=== PATIENT | female | born 2000 | race Caucasian/White ===

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

== ENCOUNTER → 2023-05-30 | Outpatient (REF) | payer OTHER, MEDICAID ==
[~2023-05-30] MED LIST: SERT50TA29 PO
[2023-05-30 21:26] LABS: GC DNA AMPLIFICATION NEGATIVE (NEGATIVE)
== END ==
LOC: M LAB REF 17:41
PROVIDERS: ATTEND Registered Nurse
DX: Z11.3 Encounter for screening for infections with a predominantly sexual mode of transmission (principal)

== ENCOUNTER 2023-06-07 12:18 | Day surgery (SDC) | payer OTHER, MEDICAID ==
[~2023-06-07] VITALS: Ht 160 cm; Wt 64.2 kg
[2023-06-07] MEDS ORDERED: MIDAZOLAM INJ 2MG/2ML VIAL As Ordered ONE (12:38)
[2023-06-07] MEDS ORDERED: fentaNYL 100 MCG/2 ML INJECTION As Ordered ONE ×2 (12:38→15:35)
[2023-06-07 12:46] LABS: HEMATOCRIT 41.1 % (36.0-47.0); HEMOGLOBIN 14.1 g/dl (12.0-15.5); MEAN CORPUSCULAR HEMOGLOBIN 31.7 pg (27.0-33.0); MEAN CORPUSCULAR HGB CONC 34.3 g/dl (32.0-36.5); MEAN CORPUSCULAR VOLUME 92.4 fl (80.0-96.0); PLATELET COUNT, AUTOMATED 255 10^3/uL (150-450); RED BLOOD COUNT 4.45 10^6/uL (4.00-5.40)
[2023-06-07] MEDS ORDERED: LIDOCAINE 2% 100MG/5ML SDV (FOR ANES.) As Ordered ONE (15:31)
[2023-06-07] MEDS ORDERED: propofoL 200 MG/20 ML VIAL As Ordered ONE (15:31)
[2023-06-07] MEDS ORDERED: ROCURONIUM BROMIDE 50MG/5ML VIAL As Ordered ONE (15:32)
[2023-06-07] MEDS ORDERED: METOCLOPRAMIDE INJ 10MG/2ML VIAL As Ordered ONE (15:36)
[2023-06-07] MEDS ORDERED: KETOROLAC 60MG 2ML VIAL As Ordered ONE (15:36)
[2023-06-07] MEDS ORDERED: ONDANSETRON 4MG 2ML VIAL As Ordered ONE (15:36)
[2023-06-07] MEDS ORDERED: SUGAMMADEX SODIUM 500 MG/5 ML VIAL (BRIDION) As Ordered ONE (15:38)
[2023-06-07] MEDS ORDERED: ACETAMINOPHEN 1000MG 100ML IV BAG As Ordered ONE (15:39)
[2023-06-07] MEDS ORDERED: DESFLURANE 240 ML INHALANT As Ordered ONE (15:43)
[2023-06-07] MEDS ORDERED: fentaNYL 100 MCG/2 ML INJECTION IV PRN (16:30)
[2023-06-07] MEDS ORDERED: LR 1,000 ML IV SCH (16:30)
[2023-06-07] MEDS ORDERED: ONDANSETRON 4MG 2ML VIAL IV PRN (16:30)
[2023-06-07] MEDS ORDERED: OXYC1TAB23 PO (16:31)
[2023-06-07] MEDS ORDERED: IBUP-1022 PO (16:32)
[2023-06-07] MEDS: oxyCODONE 5MG TAB PO PRN ×2 (16:44→17:14)
[2023-06-07 17:50] VITALS: BP 120/64; TEMP 97.8; O2SAT 98
== END 2023-06-07 18:02 | disposition home or self-care (01) ==
LOC: M SDC 12:18
PROVIDERS: ATTEND Specialist
DX: N83.201 Unspecified ovarian cyst, right side (principal); N83.02 Follicular cyst of left ovary; F32.A Depression, unspecified; Z79.899 Other long term (current) drug therapy
CPT/HCPCS: 36415; 58662; 81025; 85027; 88305; J0131; J0665; J1100; J1885; J2250; J2405; J2765; J3010

== ENCOUNTER → 2023-07-27 | Outpatient (REF) | payer OTHER, MEDICAID ==
[~2023-07-27] MED LIST changes: +IBUP-1022 PO; +OXYC1TAB23 PO
== END ==
LOC: M SFHCWAGY 17:48
PROVIDERS: ATTEND Specialist
DX: Z12.4 Encounter for screening for malignant neoplasm of cervix (principal)
CPT/HCPCS: 87624; G0123

== ENCOUNTER 2023-10-25 10:03 | Emergency (ER) | payer OTHER, MEDICAID ==
[~2023-10-25] VITALS: Ht 160 cm; Wt 71.7 kg
[2023-10-25 12:03] VITALS: BP 111/69; TEMP 98.4; O2SAT 100
== END 2023-10-25 12:07 | disposition home or self-care (01) ==
LOC: M ED 10:03
DX: N64.59 Other signs and symptoms in breast (principal); Z79.52 Long term (current) use of systemic steroids

== ENCOUNTER → 2023-12-26 | Outpatient (REF) | payer OTHER, MEDICAID | LOC: M PLALAB 10:07 | PROVIDERS: ATTEND Advanced Practice Midwife | DX: Z53.9 Procedure and treatment not carried out, unspecified reason (principal) ==

== ENCOUNTER → 2023-12-26 | Outpatient (CLI) | payer OTHER, MEDICAID ==
[2023-12-26 16:00] LABS: HEMATOCRIT 38.7 % (36.0-47.0); MEAN CORPUSCULAR HEMOGLOBIN 31.4 pg (27.0-33.0); MEAN CORPUSCULAR HGB CONC 33.6 g/dl (32.0-36.5); MEAN CORPUSCULAR VOLUME 93.5 fl (80.0-96.0); PLATELET COUNT, AUTOMATED 243 10^3/uL (150-450); RED BLOOD COUNT 4.14 10^6/uL (4.00-5.40); WHITE BLOOD COUNT 8.9 10^3/uL (4.0-10.0)
[2023-12-26 16:47] LABS: HIV 1&2 SCREEN NEGATIVE (NEGATIVE)
[2023-12-26 16:55] LABS: HEPATITIS C VIRUS ABY INDEX < 0.02 INDEX (<0.8)
[2023-12-26 17:16] LABS: CHLAMYDIA DNA AMPLIFICATION NEGATIVE (NEGATIVE); GC DNA AMPLIFICATION NEGATIVE (NEGATIVE)
== END ==
LOC: M PLALAB 10:24
PROVIDERS: ATTEND Advanced Practice Midwife
DX: Z34.91 Encounter for supervision of normal pregnancy, unspecified, first trimester (principal)

== ENCOUNTER → 2024-02-21 | Outpatient (CLI) | payer MEDICAID, OTHER | LOC: M WHC 08:49 | PROVIDERS: ATTEND Specialist | DX: O32.2XX0 Maternal care for transverse and oblique lie, not applicable or unspecified (principal); Z3A.19 19 weeks gestation of pregnancy ==

== ENCOUNTER → 2024-04-02 | Outpatient (CLI) | payer OTHER | LOC: M RAD 14:17 | PROVIDERS: ATTEND Advanced Practice Midwife | DX: Z34.82 Encounter for supervision of other normal pregnancy, second trimester (principal) ==

== ENCOUNTER → 2024-04-23 | Outpatient (CLI) | payer OTHER ==
[2024-04-23 11:26] LABS: HEMATOCRIT 35.6 % (36.0-47.0); HEMOGLOBIN 12.2 g/dl (12.0-15.5); MEAN CORPUSCULAR HGB CONC 34.3 g/dl (32.0-36.5); MEAN CORPUSCULAR VOLUME 96.2 fl (80.0-96.0); PLATELET COUNT, AUTOMATED 214 10^3/uL (150-450); WHITE BLOOD COUNT 9.3 10^3/uL (4.0-10.0)
== END ==
LOC: M PLALAB 07:54
PROVIDERS: ATTEND Advanced Practice Midwife
DX: Z34.92 Encounter for supervision of normal pregnancy, unspecified, second trimester (principal)

== ENCOUNTER → 2024-05-20 | Outpatient (CLI) | payer OTHER | LOC: M WHC 09:22 | PROVIDERS: ATTEND Advanced Practice Midwife | DX: Z34.82 Encounter for supervision of other normal pregnancy, second trimester (principal) ==

== ENCOUNTER 2024-07-11 21:06 | Inpatient (IN) | payer OTHER, MEDICAID ==
[~2024-07-11] VITALS: Ht 160 cm; Wt 77.2 kg
[2024-07-11 21:33] VITALS: BP 129/81
[2024-07-11] MEDS: OXYTOCIN DRIP 30 UNITS in IV 1 EA IV SCH (23:06)
[2024-07-11] MEDS: PENICILLIN G POTASSIUM 5 MU IV 5 MU in D5W MINI-BAG PLUS 100 ML IV STA (23:06)
[2024-07-11 23:15] VITALS: BP 133/86
[2024-07-11 23:34] LABS: BASO % 0.2 % (0.0-1.0); EOS # 0.2 10^3/uL (0.0-0.5); EOS % 1.4 % (0.0-3.0); HEMATOCRIT 33.1 % (36.0-47.0); HEMOGLOBIN 11.4 g/dl (12.0-15.5); LYMPH # 2.2 10^3/uL (1.5-5.0); LYMPH % 17.9 % (24.0-44.0); MEAN CORPUSCULAR HEMOGLOBIN 31.8 pg (27.0-33.0); MEAN CORPUSCULAR HGB CONC 34.4 g/dl (32.0-36.5); MEAN CORPUSCULAR VOLUME 92.5 fl (80.0-96.0); MONO # 0.8 10^3/uL (0.0-0.8); MONO % 6.3 % (2.0-8.0); NEUTROPHILS # 9.2 10^3/uL (1.5-8.5); NEUTROPHILS % 73.5 % (36.0-66.0); PLATELET COUNT, AUTOMATED 219 10^3/uL (150-450); RED BLOOD COUNT 3.58 10^6/uL (4.00-5.40); WHITE BLOOD COUNT 12.5 10^3/uL (4.0-10.0)
[2024-07-12] VITALS (50 sets, daily range): BP systolic 101–141; BP diastolic 55–82; O2SAT 98
[2024-07-12 00:40] LABS: HEPATITIS C VIRUS ABY INDEX < 0.02 INDEX (<0.8)
[2024-07-12] MEDS: PEN G POT 3,000,000 UNIT/50 ML 3,000,000 UNIT in IV 1 EA IV SCH (03:16)
[2024-07-12] MEDS: LR 1,000 ML IV SCH (07:57)
[2024-07-12] MEDS ORDERED: CARBOPROST TROMETHAMINE 250 MCG/ML AMP IM PRN (08:25)
[2024-07-12] MEDS ORDERED: TRANEXAMIC ACID INJection 1,000 MG in NS 100 ML IV PRN (08:25)
[2024-07-12] MEDS ORDERED: LIDOCAINE 1% MDV 20ML VIAL INFIL PRN (08:25)
[2024-07-12] MEDS ORDERED: METHYLERGONOVINE MALEATE 0.2MG/ML 1ML VIAL IM PRN (08:25)
[2024-07-12] MEDS ORDERED: OXYTOCIN INJ 10UNITS/ML 1ML VIAL IM PRN (08:25)
[2024-07-12] MEDS ORDERED: OXYTOCIN DRIP 30 UNITS in IV 1 EA IV PRN (08:25)
[2024-07-12] MEDS: miSOPROStol 50MCG 1/2 TABLET PO SCH (08:50)
[2024-07-12] MEDS: LACTATED RINGER'S 1000 ML IV STA (15:48)
[2024-07-12] MEDS ORDERED: diphenhydrAMINE 50MG/ML VIAL IV PRN (16:10)
[2024-07-12] MEDS ORDERED: NALOXONE INJ 0.4MG/1ML VIAL IV PRN (16:10)
[2024-07-12] MEDS ORDERED: LR 500 ML IV PRN (16:10)
[2024-07-12] MEDS ORDERED: ONDANSETRON 4MG 2ML VIAL IV PRN (16:10)
[2024-07-12] MEDS ORDERED: EPIDURAL/PCA KEYS XX PRN (16:10)
[2024-07-12] MEDS ORDERED: ePHEDrine SULFATE 25 MG/5 ML(5MG/ML) SYRINGE IVP PRN (16:10)
[2024-07-12] MEDS: FENTANYL/ROPIVACAINE/NACL BAG 100 ML EPIDURAL SCH (17:09)
[2024-07-12] MEDS: OXYTOCIN DRIP 30 UNITS in IV 1 EA IV SCH (17:51)
[2024-07-12] MEDS ORDERED: DIBUCAINE 1% OINTMENT 30GM TOP PRN (21:55)
[2024-07-12] MEDS ORDERED: ACETAMINOPHEN TAB 650MG DOSE (2X325MG) PO PRN (21:55)
[2024-07-12] MEDS ORDERED: RHO(D) IMMUNE GLOBULIN/MALTOSE 500MCG(2500IU)/2.2ML VIAL (WINRHO) IM SCH (21:55)
[2024-07-12] MEDS ORDERED: IBUPROFEN 600MG TAB PO PRN (21:55)
[2024-07-12] MEDS ORDERED: MOM 30ML SUSPENSION UDC PO PRN (21:55)
[2024-07-12] MEDS ORDERED: DOCUSATE SODIUM 100MG CAPSULE PO PRN (21:55)
[2024-07-13 06:00] VITALS: BP 121/69; O2SAT 97
[2024-07-13] MEDS: IBUPROFEN 800 MG TAB PO PRN (06:11)
[2024-07-13] MEDS: PRENATAL VITAMINS CHEWABLE TABLET PO SCH (09:19)
[2024-07-13] MEDS: ACETAMINOPHEN 500 MG TAB PO PRN (11:44)
[2024-07-13 16:00] VITALS: BP 129/87; O2SAT 99
[2024-07-14 05:45] VITALS: BP 135/72; O2SAT 96
[2024-07-14] MEDS: MEASLES,MUMPS,RUBELLA VACCINE INJ (MMR-II) SC.IMMUN ONE (07:27)
[2024-07-14] MEDS ORDERED: IBUP80TA PO (09:43)
[2024-07-14] MEDS ORDERED: ACET-683 PO (09:43)
== END 2024-07-14 11:45 | disposition home or self-care (01) | DRG 807 ==
LOC: M LDI 21:06 → M OBS 07-12 23:09
PROVIDERS: ADMIT Obstetrics & Gynecology; ATTEND Advanced Practice Midwife
PROC: 3E033VJ Introduction of Other Hormone into Peripheral Vein, Percutaneous Approach (ICD-10-PCS; 2024-07-11)
PROC: 10E0XZZ Delivery of Products of Conception, External Approach (ICD-10-PCS; principal; 2024-07-12)
PROC: 0HQ9XZZ Repair Perineum Skin, External Approach (ICD-10-PCS; 2024-07-12)
DX: O99.824 Streptococcus B carrier state complicating childbirth (principal); Z37.0 Single live birth; Z3A.39 39 weeks gestation of pregnancy; O70.0 First degree perineal laceration during delivery; O69.81X0 Labor and delivery complicated by cord around neck, without compression, not applicable or unspecified

== ENCOUNTER → 2024-10-01 | Outpatient (CLI) | payer MEDICAID, OTHER ==
[~2024-10-01] MED LIST changes: +ACET-683 PO; +IBUP80TA PO
[2024-10-01 14:44] LABS: HEMOGLOBIN A1c 5.2 % (4.0-6.0)
[2024-10-01 14:46] LABS: ALKALINE PHOSPHATASE 126 U/L (35-104); ALT/SGPT 68 U/L (7.0-40); AST/SGOT 29 U/L (<34); BILIRUBIN,TOTAL 0.4 MG/DL (0.3-1.2); BLOOD UREA NITROGEN 12 MG/DL (9-23); CALCIUM LEVEL 9.7 MG/DL (8.5-10.1); CARBON DIOXIDE LEVEL 30 MMOL/L (20-31); CHLORIDE LEVEL 104 MMOL/L (98-107); CHOLESTEROL LEVEL 203 MG/DL (<200); CHOLESTEROL RISK RATIO 4.01 (<5); CREATININE FOR GFR 0.54 MG/DL (0.55-1.30); FREE T4 0.99 NG/DL (0.89-1.76); GLOMERULAR FILTRATION RATE > 60.0 (>60); GLUCOSE, FASTING 82 MG/DL (60-100); HDL CHOLESTEROL 50.6 MG/DL (>40); LDL CHOLESTEROL 124.4 MG/DL (<100); NON-HDL-C 152.4 MG/DL; POTASSIUM SERUM 4.4 MMOL/L (3.5-5.1); SODIUM LEVEL 140 MMOL/L (136-145); THYROGLOBULIN ANTIBODY < 15.0 U/ML (<60.0); TOTAL PROTEIN 7.9 G/DL (5.7-8.2); TRIGLYCERIDES LEVEL 140 MG/DL (<150)
[2024-10-01 14:47] LABS: PROLACTIN 15.69 NG/ML
[2024-10-02 13:17] LABS: INSULIN TOTAL2 6.9 uIU/mL (<=18.4)
== END ==
LOC: M PLALAB 09:42
PROVIDERS: ATTEND Registered Nurse
DX: R63.5 Abnormal weight gain (principal)

== ENCOUNTER → 2024-10-23 | Outpatient (CLI) | payer MEDICAID, OTHER ==
[2024-10-23 13:06] LABS: INR 0.97; PROTHROMBIN TIME 13.2 SECONDS (12.5-14.5)
[2024-10-23 13:59] LABS: ALKALINE PHOSPHATASE 108 U/L (35-104); ALT/SGPT 73 U/L (7.0-40); AST/SGOT 33 U/L (<34); BILIRUBIN,TOTAL 0.3 MG/DL (0.3-1.2); BLOOD UREA NITROGEN 15 MG/DL (9-23); CALCIUM LEVEL 10.3 MG/DL (8.5-10.1); CARBON DIOXIDE LEVEL 28 MMOL/L (20-31); CHLORIDE LEVEL 104 MMOL/L (98-107); CREATININE FOR GFR 0.54 MG/DL (0.55-1.30); GLOMERULAR FILTRATION RATE > 60.0 (>60); GLUCOSE, FASTING 77 MG/DL (60-100); IRON (FE) 82 UG/DL (50-170); PERCENT SATURATION 25.5 % (13.2-45.0); POTASSIUM SERUM 4.5 MMOL/L (3.5-5.1); SODIUM LEVEL 140 MMOL/L (136-145); TOTAL IRON BINDING CAPACITY 322 UG/DL (250-425)
[2024-10-23 14:02] LABS: FERRITIN 18.9 NG/ML (7.3-270.7)
[2024-10-23 14:19] LABS: HEPATITIS B SURFACE ANTIGEN NEGATIVE (NEGATIVE)
[2024-10-23 14:40] LABS: HEPATITIS B CORE ANTIBODY IGM NEGATIVE (NEGATIVE); HEPATITIS C VIRUS ABY INDEX < 0.02 INDEX (<0.8)
== END ==
LOC: M PLALAB 09:56
PROVIDERS: ATTEND Registered Nurse
DX: R94.5 Abnormal results of liver function studies (principal)

== ENCOUNTER → 2024-12-13 | Outpatient (CLI) | payer OTHER | LOC: M RAD 07:52 | PROVIDERS: ATTEND Registered Nurse | DX: R94.5 Abnormal results of liver function studies (principal); K76.0 Fatty (change of) liver, not elsewhere classified ==

== ENCOUNTER → 2025-01-21 | Outpatient (CLI) | payer OTHER ==
[2025-01-21 14:23] LABS: HEMATOCRIT 39.1 % (36.0-47.0); HEMOGLOBIN 13.5 g/dl (12.0-15.5); MEAN CORPUSCULAR HGB CONC 34.5 g/dl (32.0-36.5); MEAN CORPUSCULAR VOLUME 89.7 fl (80.0-96.0); PLATELET COUNT, AUTOMATED 261 10^3/uL (150-450); RED BLOOD COUNT 4.36 10^6/uL (4.00-5.40)
[2025-01-21 15:09] LABS: HIV 1&2 SCREEN NEGATIVE (NEGATIVE)
[2025-01-21 15:18] LABS: HEPATITIS C VIRUS ABY INDEX 0.06 INDEX (<0.8)
[2025-01-21 18:08] LABS: GC DNA AMPLIFICATION NEGATIVE (NEGATIVE)
[2025-01-24 12:30] LABS: Trichomonas vaginalis (AMP) NOT DETECTED (NEGATIVE)
== END ==
LOC: M PLALAB 09:36
PROVIDERS: ATTEND Advanced Practice Midwife
DX: Z34.81 Encounter for supervision of other normal pregnancy, first trimester (principal)

== ENCOUNTER → 2025-03-14 | Outpatient (CLI) | payer OTHER | LOC: M RAD 10:36 | PROVIDERS: ATTEND Nurse Practitioner Family | DX: Z34.80 Encounter for supervision of other normal pregnancy, unspecified trimester (principal) ==

== ENCOUNTER → 2025-05-27 | Outpatient (CLI) | payer OTHER ==
[2025-05-27 11:54] LABS: PLATELET COUNT, AUTOMATED 235 10^3/uL (150-450)
[2025-05-27 12:16] LABS: GLUCOSE CHALLENGE TEST 1 HOUR 107 MG/DL (LESS THAN 140)
[2025-05-27 12:48] LABS: Trichomonas vaginalis (AMP) NOT DETECTED (NEGATIVE)
[2025-05-27 12:51] LABS: HIV 1&2 SCREEN NEGATIVE (NEGATIVE)
[2025-05-27 12:59] LABS: HEPATITIS C VIRUS ABY INDEX < 0.02 INDEX (<0.8)
[2025-05-27 13:12] LABS: GC DNA AMPLIFICATION NEGATIVE (NEGATIVE)
== END ==
LOC: M PLALAB 07:51
PROVIDERS: ATTEND Nurse Practitioner Family
DX: Z34.80 Encounter for supervision of other normal pregnancy, unspecified trimester (principal)

== ENCOUNTER → 2025-05-27 | Outpatient (CLI) | payer OTHER | LOC: M WHC 06:39 | PROVIDERS: ATTEND Nurse Practitioner Family | DX: O43.893 Other placental disorders, third trimester (principal); Z3A.31 31 weeks gestation of pregnancy ==

== ENCOUNTER → 2025-07-16 | Outpatient (REF) | payer OTHER ==
[~2025-07-16] MED LIST changes: -IBUP-1022 PO; +IBUP600T42 PO
== END ==
LOC: M PLALAB 10:28
PROVIDERS: ATTEND Advanced Practice Midwife
DX: Z34.80 Encounter for supervision of other normal pregnancy, unspecified trimester (principal)

== ENCOUNTER 2025-10-13 06:17 | Day surgery (SDC) | payer OTHER ==
[~2025-10-13] VITALS: Ht 162.6 cm; Wt 69.8 kg
[~2025-10-13 06:17] MED LIST changes: +PRENTAB9 PO; +TIRZ2.5P3
[2025-10-13] MEDS ORDERED: GABAPENTIN 300 MG CAP PO ONE (06:55)
[2025-10-13] MEDS ORDERED: SCOPOLAMINE 1MG TRANSDERMAL PATCH TOP ONE (06:55)
[2025-10-13] MEDS: LR 1,000 ML IV SCH (06:55)
[2025-10-13] MEDS ORDERED: ROCURONIUM BROMIDE 50MG/5ML VIAL As Ordered ONE (07:19)
[2025-10-13] MEDS ORDERED: LIDOCAINE 2% 100 MG/5 ML SDV (FOR ANES.) As Ordered ONE (07:19)
[2025-10-13] MEDS ORDERED: ONDANSETRON 4MG/2ML VIAL As Ordered ONE (07:20)
[2025-10-13] MEDS ORDERED: KETOROLAC 30 MG/ML 1 ML VIAL As Ordered ONE (07:20)
[2025-10-13] MEDS ORDERED: dexAMETHasone 4 MG/ML 1 ML VIAL As Ordered ONE (07:20)
[2025-10-13] MEDS ORDERED: MIDAZOLAM INJ 2 MG/2 ML VIAL As Ordered ONE (07:23)
[2025-10-13 07:49] LABS: PLATELET COUNT, AUTOMATED 242 10^3/uL (150-450)
[2025-10-13] MEDS ORDERED: ACETAMINOPHEN 1000MG/100ML IV BAG As Ordered ONE (07:52)
[2025-10-13] MEDS ORDERED: OXYC1TAB23 PO (08:23)
[2025-10-13] MEDS ORDERED: MORPHINE 2 MG/ML 1 ML VIAL As Ordered ONE (08:25)
[2025-10-13] MEDS: ONDANSETRON 4MG/2ML VIAL IV PRN (08:27)
[2025-10-13] MEDS: MORPHINE 2 MG/ML 1 ML VIAL IV PRN (08:27)
[2025-10-13 09:26] VITALS: BP 120/80; TEMP 98.6; O2SAT 100
[2025-10-13] MEDS ORDERED: SUGAMMADEX SODIUM 200 MG/2 ML VIAL As Ordered ONE (11:21)
== END 2025-10-13 10:00 | disposition home or self-care (01) ==
LOC: M SDC 06:17
PROVIDERS: ATTEND Specialist
DX: Z30.2 Encounter for sterilization (principal); F32.A Depression, unspecified; Z79.899 Other long term (current) drug therapy
CPT/HCPCS: 36415; 58661; 81025; 85027; 88302; J0131; J0665; J1100; J1885; J2250; J2405; J3010